=== PATIENT | female | born 1960 | race Caucasian/White ===

== ENCOUNTER 2022-05-13 10:04 | Emergency (ER) | payer OTHER ==
[~2022-05-13] VITALS: Ht 165.1 cm; Wt 62.0 kg
[2022-05-13 10:33] VITALS: BP 147/71
[2022-05-13 11:52] VITALS: BP 147/71
[2022-05-14] MEDS ORDERED: TRAMADOL HYDROC50 M1 PO (08:51)
== END 2022-05-13 11:58 | disposition home or self-care (01) | DRG 556 ==
LOC: ED 10:04
DX: M25.571 Pain in right ankle and joints of right foot (principal)